=== PATIENT | female | born 1995 | race Caucasian/White ===

== ENCOUNTER 2017-02-04 11:52 | Emergency (ER) | payer BC, MEDICAID ==
[~2017-02-04] VITALS: Ht 162.6 cm; Wt 40.0 kg
[2017-02-04 11:54] VITALS: BP 85/58; PULSE 79; RESP 15; TEMP 98.1; O2SAT 98
[2017-02-04 12:22] VITALS: BP 99/64
--- NOTE | 2017-02-04 12:29 | PD ---
HPI Chief Complaint: [employer] Problem Time Seen by Provider: 12:24 Travel History International Travel<30 days: No Contact w/Intl Traveler<30days: No Traveled to known affect area: No History of Present Illness HPI 22-year-old female presents the emergency department for labs, and dressing change of a PICC line in the right upper anterior chest for which the patient gets TPN. Patient is visiting from [place] with a history of intractable vomiting and nausea from a chronic bowel obstruction. Patient has orders for CBC, CMP, magnesium and phosphate, as well as dressing change for the PICC line. She currently has no other acute issues at this time. She has no known drug allergies. [facility] Past Medical History Respiratory: Yes (RESTRICTIVE LUNG DISEASE) ?: Not Social History Alcohol Use: No Tobacco Use: No Substance Use: No Allergies-Medications (Allergen,Severity, Reaction): Coded Allergies: No Known Allergies (Unverified , 02/04/17) Review of Systems Except as stated in HPI: all other systems reviewed are Neg General / Constitutional: No: Fever Eyes: No: Visual changes HENT: No: Headaches Cardiovascular: No: Chest Pain or Discomfort Respiratory: No: Shortness of Breath Gastrointestinal: No: Abdominal Pain Genitourinary: No: Dysuria Musculoskeletal: No: Pain Skin: No Rash Neurologic: No: Weakness Psychiatric: No: Depression Endocrine: No: Polydipsia Hematologic/Lymphatic: No: Easy Bruising Physical Exam Narrative GENERAL: Patient appears cachectic but otherwise no acute distress. SKIN: Warm and dry. Normal color. Normal turgor. Patient's PICC site appears in good condition without obvious erythema or drainage surrounding it. It is easily viewed through the Tegaderm. HEAD: Atraumatic. Normocephalic. EYES: Pupils equal and round. No scleral icterus. No injection or drainage. ENT: No nasal bleeding or discharge. Mucous membranes pink and moist. NECK: Trachea midline. Supple and nontender. CARDIOVASCULAR: Regular rate and rhythm. RESPIRATORY: No accessory muscle use. Clear to auscultation. Breath sounds equal bilaterally. MUSCULOSKELETAL: Extremities without clubbing, cyanosis, or edema. No obvious deformities. NEUROLOGICAL: Awake and alert. No obvious cranial nerve deficits. Motor grossly within normal limits. Five out of 5 muscle strength in the arms and legs. Normal speech. PSYCHIATRIC: Appropriate mood and affect; insight and judgment normal. Data Data Last Documented VS Vital Signs Date Time Temp Pulse Resp B/P Pulse Ox O2 Delivery O2 Flow Rate FiO2 02/04/17 12:22 99/64 02/04/17 11:54 98.1 79 15 98 Orders Vascular Access Team Consult PRN (02/04/17 12:20) Complete Blood Count With Diff (02/04/17 12:20) Comprehensive Metabolic Panel (02/04/17 12:20) Magnesium (Mg) (02/04/17 12:20) Alk Phos Isoenzymes (02/04/17 12:20) Heparin Central Flush (Heparin Central F (02/04/17 12:30) MDM Medical Decision Making Medical Screen Exam Complete: Yes Emergency Medical Condition: Yes Differential Diagnosis History of chronic bowel obstruction with intractable vomiting. Need for TPN. Need for PICC line dressing change. Need for labs per dev technical mgr ordered. Narrative Course Patient is medically stable at time of exam. PICC team is notified to come down and change the dressing for the patient. Labs are drawn including CBC, CMP, magnesium and alkaline phosphatase. Operating Room Aide can contact medical records for the patient's lab results. PICC line is heparinized. Patient is stable for discharge home. Diagnosis Primary Impression: Intractable vomiting Qualified Code: R11.2 - Intractable vomiting with nausea, unspecified vomiting type Additional Impression: PICC (peripherally inserted central catheter) flush Referrals: Operating Room Aide call for appointment Patient Instructions: General Instructions Additional Instructions: PICC team is notified to come down and change the dressing for the patient. Labs are drawn including CBC, CMP, magnesium and alkaline phosphatase. Operating Room Aide can contact medical records for the patient's lab results. PICC line is heparinized. Patient is stable for discharge home. Med/Other Pt SpecificInfo: No Change to Meds Disposition: 01 DISCHARGE HOME Condition: Stable Zak Mcelroy Feb 04, 2017 12:29 Zak Mcelroy Feb 04, 2017 12:29
[2017-02-04 13:30] LABS: AUTOMATED NEUTROPHIL # 3.2 TH/MM3 (1.8-7.7); BASOPHIL % 0.3 % (0.0-2.0); EOSINOPHIL # 0.2 TH/MM3 (0-0.4); EOSINOPHIL % 4.3 % (0.0-4.0); HEMATOCRIT 31.2 % (35.0-46.0); HEMO FLAGS DIFF FINAL; LYMPH % 32.2 % (9.0-44.0); LYMPHOCYTE # 1.9 TH/MM3 (1.0-4.8); MEAN CELL VOLUME 105.8 FL (80.0-100.0); MEAN CORPUSCULAR HEMOGLOBIN 35.9 PG (27.0-34.0); MEAN CORPUSCULAR HGB CONC 33.9 % (32.0-36.0); MONO % 8.4 % (0.0-8.0); NEUT % 54.8 % (16.0-70.0); PLATELET COUNT 215 TH/MM3 (150-450); RED BLOOD COUNT 2.95 MIL/MM3 (4.00-5.30); RED CELL DISTRIBUTION WIDTH 12.7 % (11.6-17.2); WHITE BLOOD COUNT 5.8 TH/MM3 (4.0-11.0)
[2017-02-04 13:51] LABS: ALT (GPT) 75 U/L (10-53); ANION GAP 7 MEQ/L (5-15); AST (GOT) 37 U/L (15-37); BICARBONATE 25.2 MEQ/L (21.0-32.0); BLOOD UREA NITROGEN 30 MG/DL (7-18); CHLORIDE 110 MEQ/L (98-107); GLOMERULAR FILTRATION RATE 133 ML/MIN (>89); MAGNESIUM 2.1 MG/DL (1.5-2.5); POTASSIUM 4.5 MEQ/L (3.5-5.1); SODIUM (NA) 142 MEQ/L (136-145)
[2017-02-04 13:54] LABS: ALKALINE PHOSPHATASE 67 U/L (45-117); TOTAL BILIRUBIN ADULT 0.2 MG/DL (0.2-1.0)
== END 2017-02-04 14:30 | disposition home or self-care (01) ==
LOC: NETRI 11:52
DX: R11.2 Nausea with vomiting, unspecified (principal); J98.4 Other disorders of lung
CPT/HCPCS: 80053; 83735; 84080; 85025; 99283; J1642